=== PATIENT | female | born 1950 | race Caucasian/White ===

== ENCOUNTER 2021-07-06 10:22 | Inpatient (IN) ==
[2021-07-06 11:06] LABS: Arterial Base Excess iSTAT -2 MMOL/L (-2.5-2.5); Arterial Bicarbonate iSTAT 23.3 MMOL/L (20-26); Arterial O2 Saturation iSTAT 48 % (95-100); Arterial PCO2 iSTAT 42 MM HG (35-48); Arterial PO2 iSTAT 27 MM HG (80-95); Arterial Total CO2 iSTAT 25 MMO/L (23-27); Arterial pH iSTAT 7.354 (7.35-7.45)
[2021-07-06] MEDS ORDERED: FUROSEMIDE 40 MG/4 ML VIAL IV STA (11:07)
[2021-07-06] MEDS ORDERED: cefTRIAXone 1,000 MG in SODIUM CHLORIDE 0.9% 100 ML IV STA (11:08)
[2021-07-06] MEDS ORDERED: AZITHROMYCIN INJ 500 MG in SODIUM CHLORIDE 0.9% 250 ML IV STA (11:08)
[2021-07-06 11:23] LABS: Arterial Base Excess iSTAT -4 MMOL/L (-2.5-2.5); Arterial Bicarbonate iSTAT 21.2 MMOL/L (20-26); Arterial O2 Saturation iSTAT 94 % (95-100); Arterial PCO2 iSTAT 37 MM HG (35-48); Arterial PO2 iSTAT 71 MM HG (80-95); Arterial Total CO2 iSTAT 22 MMO/L (23-27); Arterial pH iSTAT 7.368 (7.35-7.45)
[2021-07-06 11:23] LABS: Arterial Base Excess iSTAT -2 MMOL/L (-2.5-2.5); Arterial Bicarbonate iSTAT 22.5 MMOL/L (20-26); Arterial O2 Saturation iSTAT 68 % (95-100); Arterial PCO2 iSTAT 38 MM HG (35-48); Arterial PO2 iSTAT 36 MM HG (80-95); Arterial Total CO2 iSTAT 24 MMO/L (23-27); Arterial pH iSTAT 7.384 (7.35-7.45)
[2021-07-06 11:25] LABS: Basophils # 0.1 10*3/uL (0.0-0.2); Basophils % 0.9 % (0.0-0.8); Eosinophils # 0.5 10*3/uL (0.0-0.87); Eosinophils % 6.8 % (0.00-10.9); Hematocrit 38.5 VOL% (35.7-47.0); Hemoglobin 13.1 GM/DL (12.0-16.0); Immature Granulocytes % 0.4 %; Immature Granulocytes Absolute 0.03 #; Lymphocytes # 1.6 10*3/uL (1.4-4.0); Lymphocytes % 20.7 % (21.3-54.2); Mean Corpuscular Volume 91.2 FL (87-102); Mean Platelet Volume 8.9 FL (9.6-12.0); Monocytes % 6.3 % (1.7-12.7); Neutrophils % 64.9 % (38.7-73.9); Platelet Count 262 T/CUMM (130-400); Red Blood Count 4.22 MC/CUMM (3.8-5.5); Red Cell Distribution Width 12.5 % (9.3-17.3); White Blood Count 7.8 T/CUMM (4-12)
[2021-07-06 12:17] LABS: Alanine Aminotransferase 14 U/L (13-56); Alkaline Phosphatase 89 U/L (45-117); Aspartate Amino Transferase 26 U/L (0-37); Bilirubin,Total < 0.39 MG/DL (0.20-1.00); Blood Urea Nitrogen 10 MG/DL (7-18); Calcium 8.3 MG/DL (8.5-10.1); Carbon Dioxide 25 MMOL/L (21-32); Estimated Glom Filtration Rate 106 ML/MIN; Glucose 186 MG/DL (74-106); Osmolality,Calculated 278.7 MOS/KG (273-304); Potassium 4.2 MMOL/L (3.5-5.1); Sodium 138 MMOL/L (136-145); Total Protein 6.2 G/DL (6.4-8.2)
[2021-07-06] MEDS ORDERED: hydrALAZINE 20 MG/1 ML VIAL IV STA (13:35)
[2021-07-06] MEDS ORDERED: hydrALAZINE 20 MG/1 ML VIAL ONE (13:35)
[2021-07-06] MEDS ORDERED: GLUCAGON 1 MG VIAL IM PRN ×2 (14:26)
[2021-07-06] MEDS ORDERED: DEXTROSE 50% 25 GM/50 ML VIAL IV PRN (14:26)
[2021-07-06] MEDS ORDERED: ONDANSETRON 4 MG/2 ML VIAL IV PRN (14:26)
[2021-07-06] MEDS ORDERED: DEXTROSE 10% 250 ML BAG IV PRN (14:44)
[2021-07-06] MEDS ORDERED: hydrALAZINE 20 MG/1 ML VIAL IV PRN (15:21)
[2021-07-06] MEDS: FUROSEMIDE 40 MG/4 ML VIAL IV SCH (17:57)
[2021-07-06] MEDS: INSULIN LISPRO 100 UNIT/ML SUBCUT SCH ×2 (18:03→22:16)
[2021-07-06] MEDS: ACETAMINOPHEN 325 MG TABLET PO PRN ×2 (18:39→23:18)
[2021-07-06] MEDS ORDERED: LOSARTAN 50 MG TABLET PO SCH (21:00)
[2021-07-06] MEDS: PROPRANOLOL 20 MG TABLET PO SCH (22:11)
[2021-07-06] MEDS: levETIRAcetam 250 MG TABLET PO SCH (22:14)
[2021-07-06] MEDS: ENOXAPARIN 40 MG/0.4 ML SYRINGE SUBCUT SCH (22:15)
[2021-07-06] MEDS: SPIRONOLACTONE 25 MG TABLET PO SCH (22:15)
[2021-07-06] MEDS: CYCLOBENZAPRINE 10 MG TABLET PO SCH (22:15)
[2021-07-07] MEDS ORDERED: MORPHINE 2 MG/1 ML SYRINGE IV ONE (00:41)
[2021-07-07 05:40] LABS: Basophils # 0.1 10*3/uL (0.0-0.2); Basophils % 0.6 % (0.0-0.8); Eosinophils # 0.4 10*3/uL (0.0-0.87); Eosinophils % 3.9 % (0.00-10.9); Hematocrit 40.2 VOL% (35.7-47.0); Hemoglobin 13.5 GM/DL (12.0-16.0); Immature Granulocytes % 0.4 %; Immature Granulocytes Absolute 0.04 #; Lymphocytes # 2.6 10*3/uL (1.4-4.0); Lymphocytes % 27.7 % (21.3-54.2); Mean Corpuscular HGB Conc 33.6 GM/DL (32-36); Mean Corpuscular Volume 90.1 FL (87-102); Mean Platelet Volume 8.8 FL (9.6-12.0); Monocytes % 6.8 % (1.7-12.7); Neutrophils % 60.6 % (38.7-73.9); Platelet Count 297 T/CUMM (130-400); Red Blood Count 4.46 MC/CUMM (3.8-5.5); Red Cell Distribution Width 12.6 % (9.3-17.3); White Blood Count 9.4 T/CUMM (4-12)
[2021-07-07 06:08] LABS: Calcium 8.2 MG/DL (8.5-10.1); Osmolality,Calculated 277.5 MOS/KG (273-304); Potassium 3.5 MMOL/L (3.5-5.1); Risk Ratio 4.18; Thyroid Stimulating Hormone 10.8 uIU/ml (0.358-3.74); VLDL Cholesterol 63.8 MG/DL
[2021-07-07] MEDS: INSULIN LISPRO 100 UNIT/ML SUBCUT SCH ×4 (07:58→20:44)
[2021-07-07] MEDS ORDERED: VALSARTAN 80 MG TABLET PO SCH (09:00)
[2021-07-07] MEDS ORDERED: VALSARTAN 160 MG TABLET PO SCH (09:00)
[2021-07-07] MEDS: VALSARTAN 160 MG TABLET PO SCH (09:57)
[2021-07-07] MEDS: DAPAGLIFLOZIN 10 MG TABLET PO SCH (09:57)
[2021-07-07] MEDS: PROPRANOLOL 20 MG TABLET PO SCH ×3 (09:58→20:39)
[2021-07-07] MEDS: levETIRAcetam 250 MG TABLET PO SCH ×2 (09:58→20:39)
[2021-07-07] MEDS: SPIRONOLACTONE 25 MG TABLET PO SCH ×2 (09:58→20:39)
[2021-07-07] MEDS: CYCLOBENZAPRINE 10 MG TABLET PO SCH ×2 (09:58→20:38)
[2021-07-07] MEDS: PANTOPRAZOLE 40 MG TABLET PO SCH (09:58)
[2021-07-07] MEDS: FENOFIBRATE 48 MG TABLET PO SCH (09:58)
[2021-07-07] MEDS: FUROSEMIDE 40 MG/4 ML VIAL IV SCH ×2 (09:59→16:55)
[2021-07-07] MEDS: ACETAMINOPHEN 325 MG TABLET PO PRN (11:57)
[2021-07-07] MEDS: ENOXAPARIN 40 MG/0.4 ML SYRINGE SUBCUT SCH (20:38)
[2021-07-07] MEDS: ROSUVASTATIN 10 MG TABLET PO SCH (20:38)
[2021-07-08 04:45] LABS: Calcium 8.6 MG/DL (8.5-10.1); Osmolality,Calculated 278.7 MOS/KG (273-304); Potassium 3.3 MMOL/L (3.5-5.1)
[2021-07-08] MEDS ORDERED: POTASSIUM CHLORIDE 20 MEQ TABLET PO ONE (07:38)
[2021-07-08] MEDS: FUROSEMIDE 40 MG/4 ML VIAL IV SCH ×2 (08:08→15:24)
[2021-07-08] MEDS: INSULIN LISPRO 100 UNIT/ML SUBCUT SCH ×4 (08:42→21:39)
[2021-07-08] MEDS: DAPAGLIFLOZIN 10 MG TABLET PO SCH (08:42)
[2021-07-08] MEDS: SPIRONOLACTONE 25 MG TABLET PO SCH ×2 (08:43→21:36)
[2021-07-08] MEDS: VALSARTAN 160 MG TABLET PO SCH (08:56)
[2021-07-08] MEDS: CYCLOBENZAPRINE 10 MG TABLET PO SCH ×2 (08:56→21:37)
[2021-07-08] MEDS: PROPRANOLOL 20 MG TABLET PO SCH ×4 (08:56→21:36)
[2021-07-08] MEDS: PANTOPRAZOLE 40 MG TABLET PO SCH (08:56)
[2021-07-08] MEDS: levETIRAcetam 250 MG TABLET PO SCH ×2 (08:58→21:37)
[2021-07-08] MEDS: FENOFIBRATE 48 MG TABLET PO SCH (08:59)
[2021-07-08] MEDS: ASPIRIN EC 81 MG TABLET PO SCH (10:16)
[2021-07-08] MEDS: ROSUVASTATIN 10 MG TABLET PO SCH (21:37)
[2021-07-08] MEDS: ENOXAPARIN 40 MG/0.4 ML SYRINGE SUBCUT SCH (21:37)
[2021-07-09 08:13] LABS: Calcium 8.5 MG/DL (8.5-10.1); Osmolality,Calculated 279.7 MOS/KG (273-304); Potassium 4.2 MMOL/L (3.5-5.1)
[2021-07-09] MEDS: INSULIN LISPRO 100 UNIT/ML SUBCUT SCH ×2 (08:16→12:20)
[2021-07-09] MEDS ORDERED: VALSARTAN 160 MG TABLET PO SCH (09:00)
[2021-07-09] MEDS: FUROSEMIDE 40 MG/4 ML VIAL IV SCH (09:33)
[2021-07-09] MEDS: DAPAGLIFLOZIN 10 MG TABLET PO SCH (09:53)
[2021-07-09] MEDS: CYCLOBENZAPRINE 10 MG TABLET PO SCH (09:53)
[2021-07-09] MEDS: PROPRANOLOL 20 MG TABLET PO SCH (09:53)
[2021-07-09] MEDS: ASPIRIN EC 81 MG TABLET PO SCH (09:54)
[2021-07-09] MEDS: SPIRONOLACTONE 25 MG TABLET PO SCH (09:54)
[2021-07-09] MEDS: levETIRAcetam 250 MG TABLET PO SCH (09:54)
[2021-07-09] MEDS: PANTOPRAZOLE 40 MG TABLET PO SCH (09:54)
[2021-07-09] MEDS: FENOFIBRATE 48 MG TABLET PO SCH (09:55)
[2021-07-09 13:01] VITALS: BP 117/83
== END 2021-07-09 13:30 | disposition home or self-care (01) | DRG 291 ==
LOC: N.ED 10:22 → SUATTDRO 14:26 → N.TELES 14:26
PROVIDERS: ADMIT Emergency Medicine; ATTEND Internal Medicine